=== PATIENT | female | born 1980 | race Hispanic/Latino ===

== ENCOUNTER 2020-04-13 21:22 | Emergency (ER) | payer OTHER ==
[~2020-04-13] VITALS: Ht 170.2 cm; Wt 84.8 kg
[2020-04-14 00:12] LABS: BILIRUBIN,URINE MODERATE (NEGATIVE); CLARITY,URINE CLOUDY (CLEAR); COLOR,URINE ORANGE (YELLOW); KETONES,URINE 2+ (NEGATIVE); LEUKOCYTE ESTERASE ,URINE TRACE (NEGATIVE); NITRITE,URINE NEGATIVE (NEGATIVE); PROTEIN,URINE DIPSTICK 2+ (NEGATIVE)
[2020-04-14 00:23] LABS: BACTERIA,URINE MANY /HPF; EPITHELIAL CELLS,URINE MANY /LPF; WBC,URINE (MAN) >50 /HPF (0-5)
--- NOTE | 2020-04-14 00:55 | Emergency Department Note ---
History of Present Illnes History of Present Illness Chief Complaint: General Medicine Complaints History of Present Illness This is a 39 year old female . multiple complaints of dry cough for one week, chills, headache and lower back pain. Patient is 7 months and states she saw her OBGYN recently and was told to take cough medications and tylenol. Patient states she has not been test for COVID. PT DOES REPORT DYSURIA AND FREQUENCY. Historian: Patient Arrival Mode: Car Onset (how long ago): day(s) (7) Location: LOWER BACK, Quality: DYSURIA, FREQUENCY, DRY COUGH FOR A WEEK, NO FEVER Radiation: Reports non-radiation Severity: mild Onset quality: gradual Duration (how long): day(s) (7) Progression: unchanged Chronicity: new Context: Denies recent illness Relieving factors: none Exacerbating factors: none Associated symptoms: Reports cough Treatments prior to arrival: none Past Medical/Family History Physician Review I have reviewed the patient's past medical and family history. Any updates have been documented here. Past Medical History Recent Fever: No Clinical Suspicion of Infectio: No New/Unexplained Change in Ment: No Past Medical History: None Past Surgical History: None Family History Family history of heart diseas: No Other Last Tetanus: utd Review of Systems Review of Systems Constitutional: Reports no symptoms EENTM: Reports no symptoms Cardiovascular: Reports no symptoms Respiratory: Reports as per HPI Gastrointestinal: Reports no symptoms Genitourinary: Reports as per HPI Musculoskeletal: Reports no symptoms Integumentary: Reports no symptoms Neurological: Reports no symptoms Psychological: Reports no symptoms Endocrine: Reports no symptoms Hematological/Lymphatic: Reports no symptoms Physical Exam Related Data Triage Vital Signs Vital Signs Date Time Temp Pulse Resp B/P (MAP) Pulse Ox O2 Delivery O2 Flow Rate FiO2 04/13/20 22:19 97.7 118 20 127/87 99 Vital signs reviewed: Yes Physical Exam CONSTITUTIONAL Constitutional: Present well-developed, Present well-nourished HENT HENT: Present normocephalic, Present atraumatic, Present oropharynx clear/moist, Present nose normal HENT L/R: Present left ext ear normal, Present right ext ear normal EYES Eyes: Reports PERRL, Reports conjunctivae normal NECK Neck: Present ROM normal PULMONARY Pulmonary: Present effort normal, Present breath sounds normal CARDIOVASCULAR Cardiovascular: Present regular rhythm, Present heart sounds normal, Present capillary refill normal, Present tachycardia GASTROINTESTINAL Abdominal: Present soft, Present bowel sounds normal, Present tender (SUPRAPUBIC), Present other (GRAVID) GENITOURINARY Genitourinary: Present exam deferred SKIN Skin: Present warm, Present dry MUSCULOSKELETAL Musculoskeletal: Present ROM normal NEUROLOGICAL Neurological: Present alert, Present oriented x 3, Present no gross motor or sensory deficits PSYCHOLOGICAL Psychological: Present mood/affect normal, Present judgement normal Results Laboratory Laboratory Laboratory Tests Test 04/13/20 23:59 Urine Color [place] (YELLOW) Urine Clarity Cloudy (CLEAR) Urine pH 6 (5 - 7) Urine Specific [place] >=1.030 (1.010-1.025) Urine Protein 2+ (NEGATIVE) Urine Glucose (UA) Negative (NEGATIVE) Urine Ketones 2+ (NEGATIVE) Urine Blood Negative (NEGATIVE) Urine Nitrite Negative (NEGATIVE) Urine Bilirubin Moderate (NEGATIVE) Urine Urobilinogen 2.0 mg/dL (0.2 - 1) Urine Leukocyte Esterase Trace (NEGATIVE) Urine RBC 11-20 /HPF (0-5) Urine WBC >50 /HPF (0-5) Urine Epithelial Cells Many /LPF (NONE) Urine Bacteria Many /HPF (NONE) Lab results reviewed: Yes Assessment & Plan Medical Decision Making MDM PT WITH DRY COUGH, DYSURIA, FREQUENCY AND LOW BACK PAIN FOR 7 DAY, PT IS 7 MONTHS GESTATION, PT WITHOUT RESPIRATORY DISTRESS, OXYGEN SAT 100% ON ROOM AIR UA ORDERED TO EVAL FOR UTI, PT DISCHARGED WITH OMNICEF 300 MG PO BID FOR 10 DAYS PT GIVEN [email or web address].[facility] TO OBTAIN COVID 19 TEST OR TALK WITH YOUR [employer]ER ABOUT ARRANGING A COVID 19 TEST Assessment & Plan Final Impression: (1) Cough (2) UTI (urinary tract infection) Depart Disposition: HOME, SELF-CARE Last Vital Signs Date Time Temp Pulse Resp B/P (MAP) Pulse Ox O2 Delivery O2 Flow Rate FiO2 04/13/20 22:19 97.7 118 20 127/87 99 CATY MURGUIA MD Apr 14, 2020 00:55
== END 2020-04-14 01:22 | disposition home or self-care (01) ==
LOC: ER 21:22
DX: O26.93 Pregnancy related conditions, unspecified, third trimester (principal); O23.43 Unspecified infection of urinary tract in pregnancy, third trimester; R30.0 Dysuria; R05 Cough; R51 Headache; M54.5 Low back pain
CPT/HCPCS: 81001; 99283